=== PATIENT | female | born 2000 | race Caucasian/White ===

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

== ENCOUNTER 2021-05-01 17:41 | Emergency (ER) | payer OTHER ==
[2021-05-01 18:24] VITALS: BP 103/70; PULSE 76; TEMP 97.8; BMI 17.3
== END 2021-05-01 19:30 | disposition home or self-care (01) ==
LOC: JERFT 17:41
DX: S60.221A Contusion of right hand, initial encounter (principal); S39.012A Strain of muscle, fascia and tendon of lower back, initial encounter; V49.10XA Passenger injured in collision with unspecified motor vehicles in nontraffic accident, initial encounter
CPT/HCPCS: 99281-25